=== PATIENT | male | born 1990 | race Caucasian/White ===

== ENCOUNTER 2018-03-02 05:46 | Observation (INO) | payer BC, OTHER ==
[2018-03-02] MEDS ORDERED: NS 0.9% 1000 ML* 1,000 ML IV ONE ×2 (06:12→10:06)
[2018-03-02] MEDS ORDERED: Morphine VIAL* 4 MG/ML VIAL (1 ml vial) IV ONE ×2 (06:14→07:24)
[2018-03-02] MEDS ORDERED: Ondansetron INJ* 2 MG/ML VIAL IV ONE ×2 (06:14→07:37)
--- NOTE | 2018-03-02 06:20 | ED ---
Abdominal Pain/Male - HPI Summary HPI Summary: Patient presents with abdominal pain. Reports this started after bout of diarrhea on Tuesday. He has had normal bowel movements since. Denies nausea, vomiting however he reports he felt a little nauseous in the bathroom here while trying to give urine sample. He reports feeling the pain in his epigastrium around his navel and although he has bilateral lower pain, thinks it 's more prominent in the right lower quadrant and/or perhaps started here. Denies fevers or chills since Tuesday until this morning when he had a sharp bursts of pain causing him to feel sweats with chills. This pain was felt most prominently in the right lower quadrant. He denies headache, chest pain, shortness of breath, skin changes, recent illness, dysuria, flank pain, urinary frequency or hesitation. No previous gastroenterological pathologies or surgeries. His last food intake entailed a couple bites of Georgian yogurt around noon yesterday. Since then he's only been drinking water - last intake at 5am. Reports pain is worse shortly after eating or drinking anything. No history of issues with anesthesia No known cardiac, pulmonary or bleeding disorders - History of Current Complaint Chief Complaint: EDAbdPain Stated Complaint: ABD PAIN Time Seen by Provider: 03/02/18 05:51 Hx Obtained From: Patient Pain Intensity: 7 - Allergies/Home Medications Allergies/Adverse Reactions: Allergies Allergy/AdvReac Type Severity Reaction Status Date / Time No Known Allergies Allergy Verified 03/02/18 05:54 PMH/Surg Hx/FS Hx/Imm Hx Previously Healthy: Yes Endocrine/Hematology History: Denies: Hx Anticoagulant Therapy, Hx Blood Disorders, Hx Diabetes, Autoimmune Disease Cardiovascular History: Denies: Hx Hypertension, Hx Pacemaker/ICD Respiratory History: Denies: Hx Asthma GI History: Denies: Hx Cirrhosis, Hx Crohn's Disease, Hx Diverticulosis, Hx Gall Bladder Disease, Hx Gastroesophageal Reflux Disease, Hx Gastrointestinal Bleed, Hx Hiatal Hernia, Hx Irritable Bowel, Hx Obstructive Bowel, Hx Ulcer Musculoskeletal History: Reports: Other Musculoskeletal History - Lt knee ACL surgery Sensory History: Denies: Hx Hearing Aid Psychiatric History: Denies: Hx Panic Disorder - Surgical History Surgery Procedure, Year, and Place: SUTURES TO RIGHT FOOT FROM CUT. Lt ACL repair Infectious Disease History: No Infectious Disease History: Denies: Traveled Outside the [place] in Last 30 Days - Family History Known Family History: Positive: None - Social History Lives: Alone Alcohol Use: Occasionally Substance Use Type: Reports: Marijuana - occasionally Hx Tobacco Use: No Smoking Status (MU): Never Smoked Tobacco Review of Systems Positive: Fever, Chills - this morning after a burst of intense pain Cardiovascular: Negative Negative: Chest Pain Respiratory: Negative Negative: Shortness Of Breath Positive: Abdominal Pain, Nausea. Negative: Vomiting, Diarrhea Genitourinary: Negative Negative: burning, dysuria, discharge, frequency, flank pain, hematuria, incontinence, pain, urgency Musculoskeletal: Negative Skin: Negative Neurological: Negative Psychological: Normal All Other Systems Reviewed And Are Negative: Yes Physical Exam Triage Information Reviewed: Yes Vital Signs On Initial Exam: Initial Vitals Temp Pulse Resp BP Pulse Ox 98.3 F 63 16 146/74 100 03/02/18 05:50 03/02/18 05:50 03/02/18 05:50 03/02/18 05:50 03/02/18 05:50 Vital Signs Reviewed: Yes Appearance: Positive: Well-Nourished, Ill-Appearing, Pain Distress Skin: Positive: Warm, Skin Color Reflects Adequate Perfusion, Dry Head/Face: Positive: Normal Head/Face Inspection Eyes: Positive: Normal, EOMI, Conjunctiva Clear - anicteric sclera ENT: Positive: Normal ENT inspection, Hearing grossly normal, Pharynx normal - mucosa moist however breath smells ketotic Neck: Positive: Supple, Nontender Respiratory/Lung Sounds: Positive: Clear to Auscultation, Breath Sounds Present. Negative: Rales, Rhonchi, Wheezes Cardiovascular: Positive: Normal, RRR, S1, S2. Negative: Murmur, Rub, Leg Edema Left, Leg Edema Right Abdomen Description: Positive: Guarding, McBurney's Point Tenderness - no rebounding however exam may be skewed by pt gaurding; (-) obturator; (-) psoas Bowel Sounds: Positive: Present Musculoskeletal: Positive: Normal, Strength/ROM Intact Neurological: Positive: Normal, Sensory/Motor Intact, Alert, Oriented to Person Place, Time, CN Intact II-III Psychiatric: Positive: Normal Diagnostics - Vital Signs Vital Signs Temp Pulse Resp BP Pulse Ox 03/02/18 05:50 98.3 F 63 16 146/74 100 - Laboratory Result Diagrams: 03/02/18 06:43 03/02/18 06:43 Lab Statement: Any lab studies that have been ordered have been reviewed, and results considered in the medical decision making process. Re-Evaluation - Re-Evaluation First Eval Change: Improved - minimal improvement - from 7/10 to 6/10 pain - still very uncomfrotable and guarding ab for exam. Nausea resolved. Tolerated PO contrast and denies worsening of ab pain w/ drinking. Second Eval Change: Improved - pain improved w/ additional 4mg morphine 4/10 Abdominal Pain Fem Course/Dx - Course Course Of Treatment: Pt presents w/ ab pain x 5 days. After some conversation, it was decided this is most dominant in the RLQ. Pt is gaurding throughout exam. Labs are noted to show normal WBC but slightly elevated neutrophils, CRP and low mag at 1.7. Urine reveals ketones which were expected with lack of eating > [address] ab/pelvis reveals appendicitis with inflammation. Discussed w/ Dr. Munoz and then Dr. Robe Padilla's lead dental assistant. Zosyn was initiated however per Dr. Nagel'd request will be held until perioperatively. Dr Nagel is aware of pt's labs, CT results, duration of pain and increase in temp from 99F to 100.3F. His PA will be down to see pt. Pt in stable condition and pain improved at times of transition. - Diagnoses Provider Diagnoses: Appendicitis Discharge - Sign-Out/Discharge Documenting (check all that apply): Patient Departure - Discharge Plan Condition: Stable Disposition: ADMITTED TO [facility] - Billing Disposition and Condition Condition: STABLE Disposition: Admitted to [facility]
[2018-03-02 07:01] LABS: ABS Basophils 0 10^3/ul (0-0.2); ABS Eosinophils 0 10^3/ul (0-0.6); ABS Lymphocytes 0.8 10^3/ul (1.0-4.8); ABS Monocytes 0.7 10^3/ul (0-0.8); ABS Neutrophils 7.6 10^3/ul (1.5-7.7); ABS Nucleated RBC 0 10^3/ul; Eosinophil % 0.4 % (0-6); Hematocrit 44 % (42-52); Hemoglobin 15.4 g/dl (14.0-18.0); Lymphocyte % 8.7 % (25-47); Mean Corpuscular HGB Conc 35 g/dl (31-36); Mean Corpuscular Hemoglobin 31 pg (27-31); Mean Corpuscular Volume 87 fL (80-94); Mean Platelet Volume 9.5 um3 (7.4-10.4); Nucleated Red Blood Cells % 0; Platelet Count 129 10^3/ul (150-450); Red Blood Count 4.98 10^6/ul (4.00-5.40); Red Cell Distribution Width 13 % (10.5-15); White Blood Count 9.2 10^3/ul (3.5-10.8)
[2018-03-02 07:07] LABS: INR 1.13 (0.77-1.02)
[2018-03-02] MEDS ORDERED: Ondansetron INJ* 2 MG/ML VIAL ONE ×2 (07:40→12:14)
[2018-03-02] MEDS ORDERED: Iohexol 300* (CONTRAST) 10 ML SDV IV ONE (08:31)
[2018-03-02 08:59] LABS: Urine Appearance Clear; Urine Blood Negative (Negative); Urine Color Amber; Urine Ketones 1+ (Negative); Urine Protein Negative (Negative); Urine Specific Gravity 1.025 (1.010-1.030); Urine Urobilinogen Negative (Negative)
[2018-03-02] MEDS ORDERED: Piperacillin/Tazobac ADVAN(*) 3.375 GM in NS 0.9% 100 ML* 100 ML IVPB ONE (10:06)
--- NOTE | 2018-03-02 10:07 | RAD ---
Indication: Diffuse abdominal pain. Contrast: Administered 95.4 ml of OMNIPAQUE 300 mg/ml CT of the abdomen and pelvis was performed after oral and IV contrast administration. Coronal and sagittal reconstructed images were obtained. Lung bases imaging no pleural fluid, nodules or masses. Heart is of normal size without evidence of pericardial effusion. Liver is normal in size. No focal lesions or intrahepatic duct dilatation is noted. The gallbladder demonstrates no calcified gallstones. No pericholecystic fluid or wall thickening is identified. The spleen is normal in size. The pancreas demonstrates no mass or pancreatic duct dilatation. No adrenal masses are noted. The kidneys demonstrate no hydronephrosis. Small cortical cysts are noted in both kidneys. No retroperitoneal lymphadenopathy is noted. Dilated loops of bowel are noted. CT of the pelvis demonstrates an appendicolith at the base of the appendix. This measures approximately 9 mm. Dilated appendix with hyperemic mucosa is noted. There is thickening of the cecum. Periappendiceal inflammatory changes are noted. Moderate-sized amount of ascites is noted. The colon is filled with stool. Urinary bladder is unremarkable. No hernias are noted. IMPRESSION: Appendicolith with dilated appendix and hyperenhancing mucosa. Moderate amount of ascites is noted. There is thickening of the cecum with inflammatory changes surrounding the appendix.
[2018-03-02] MEDS ORDERED: HYDROmorphone INJ* 2 MG/ML CARPUJECT SYRINGE IV PRN (10:36)
[2018-03-02] MEDS ORDERED: Ondansetron INJ* 2 MG/ML VIAL IV PRN (10:36)
[2018-03-02] MEDS ORDERED: Piperacillin/Tazobactam VIAL*) 3.375 GM in NS 0.9% 100 ML* 100 ML IVPB SCH ×2 (11:00→19:30)
[2018-03-02] MEDS ORDERED: Buffered Lidocaine 0.9% SYRIN* 5 ML/SYR SYRINGE INTRADERM ONE (11:53)
[2018-03-02] MEDS ORDERED: Sodium Citrate/Citric Acid* 15 ML UDC PO ONE (11:53)
[2018-03-02] MEDS ORDERED: Famotidine IV* 10 MG/ML 2 ML (20 mg) IV ONE (11:53)
--- NOTE | 2018-03-02 12:12 | HP ---
HISTORY AND PHYSICAL: DATE OF ADMISSION: 03/02/18 PATIENT OF: Sourav Nagel MD * (DICTATED BY KURT TERAN) CHIEF COMPLAINT: Abdominal pain. HISTORY OF PRESENT ILLNESS: Mr. Ken is a 27-year-old gentleman, who has no significant past medical history, who is in town visiting his mother and working around the area but originally lives in [place], [place]. He presented to [facility] earlier this morning with complaints of worsening abdominal pain for the last 5 days. The patient described his symptoms as vague, mild abdominal pain that started roughly on Tuesday and has gotten progressively worse especially yesterday. The pain was mostly localized to mid abdomen and started to shift towards the right lower quadrant earlier yesterday. He described a sharp episode of pain early this morning prior to presentation to the ED with associated chills, but denies any fever, nausea, vomiting, changes in the bowel habits, changes in the color of stool or urine, or any similar complaints in the past. He otherwise is a very healthy young gentleman, who does not take any medication on a regular basis. He was evaluated in the emergency room and had laboratory workup that showed a normal white count as well as normal chemistry panel with the exception of slightly decreased magnesium and elevated CRP of 60. He had a CT scan of the abdomen and pelvis that showed thickening of the cecum, base of the appendix as well as inflammatory changes consistent with acute appendicitis. Given his current presentation and the findings of the CT scan, we were asked to see the patient for further evaluation and to consider admission for his appendicitis. PAST MEDICAL HISTORY: Essentially unremarkable. He denies any history of heart , liver, lung, or kidney disease. PAST SURGICAL HISTORY: Significant for a left knee arthroscopy with ACL repair and partial meniscectomy by Dr. Brwone a few years ago. CURRENT MEDICATIONS: He takes no medications at home. ALLERGIES: He has no known drug allergies. FAMILY HISTORY: Reviewed and noncontributory. SOCIAL HISTORY: The patient denies smoking cigarettes, but he does smoke marijuana occasionally. He drinks alcohol occasionally and denies excessive caffeine intake. 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 His healthcare proxy is carried by his mom who lives in [place]. REVIEW OF SYSTEMS: See HPI. Otherwise 14-point review of systems was evaluated and essentially negative. PHYSICAL EXAMINATION GENERAL: He is a pleasant healthy-appearing young male, in no acute distress or discomfort at the time of admission. VITAL SIGNS: Revealed a temperature of 100.3, blood pressure of 124/69, pulse of 86, respirations of 18, and O2 sats of 97% on room air. HEENT: Head is normocephalic, atraumatic. Sclerae anicteric. PERRLA. EOMs intact. Oropharynx is pink and moist. NECK: Supple. Trachea midline. No cervical adenopathy, thyromegaly, or JVD. LUNGS: Clear to auscultation bilaterally. HEART: Regular rate and rhythm. Normal S1 and S2 without rubs, murmurs, or gallops. BACK: With normal curvature and no CVA tenderness. ABDOMEN: Soft and nondistended. There is moderate right lower quadrant tenderness on palpation with some guarding and rebound tenderness as well. There is a definite point tenderness at McBurney's point with positive psoas sign. Kaur's sign is negative. There are no hernias, masses, or hepatosplenomegaly. RECTAL: Exam deferred at this time. EXTREMITIES: Without cyanosis, clubbing, or edema. NEUROLOGIC: Grossly intact. DIAGNOSTIC STUDIES/LAB DATA: CBC with white count of 9000, hemoglobin 15.4, hematocrit of 44, platelets of 129. Chemistry with sodium of 134, potassium 3.8 , chloride 101, CO2 of 24, BUN of 9, creatinine of 0.8, his glucose is 115, magnesium 1.7. C-reactive protein 60. LFTs essentially within normal limits and lipase of 11. Accessory diagnostic data: CT scan of the abdomen and pelvis was performed and revealed appendicolith with dilated appendix and moderate amount of ascites as well. There is thickening of the cecum with inflammatory changes around the appendix. IMPRESSION: A 27-year-old gentleman with no significant past medical history, who presented to emergency room with 5 days' history of worsening right lower quadrant abdominal pain that was found on exam and CT scan to have acute appendicitis. PLAN: The patient will be admitted under surgical services in anticipation for laparoscopic appendectomy later today. I discussed with him the rationale, indication, risks, and benefits of surgery. Risks include, but not limited to, infection, bleeding, or injury to adjacent structures. He seems to understand and wishes to agree with the plan. He has been NPO since 5 o'clock this morning and we will keep him NPO, provide IV fluid hydration, as well as antibiotic. He appears to be clinically stable at this time and we will review the case with Dr. Nagel for further recommendation. I anticipate operating room time around this afternoon, hopefully to be discharged home later this evening or tomorrow morning if any issues arise. KURT TERAN [id number]/[facility] #: [id number] MTDD
[2018-03-02] MEDS ORDERED: Propofol* 10 MG/ML 20 ML BTL IV PUSH ONE (12:14)
[2018-03-02] MEDS ORDERED: Lidocaine 2% PF * 5 ML VIAL ONE (12:14)
[2018-03-02] MEDS ORDERED: Ketorolac INJ* 30 MG/ML 1 ML VIAL ONE (12:14)
[2018-03-02] MEDS ORDERED: Rocuronium* 10 MG/ML VIAL ONE (12:15)
[2018-03-02] MEDS ORDERED: fentaNYL* 50 MCG/ML 2 ML VIAL (100 MCG VIAL) ONE ×2 (12:17→13:06)
[2018-03-02] MEDS ORDERED: Midazolam* 1 MG/ML 2 ML VIAL (2 MG) ONE (12:17)
[2018-03-02] MEDS ORDERED: Naloxone* 0.4 MG/ML 1 ML VIAL IV PRN (12:20)
[2018-03-02] MEDS ORDERED: Acetaminophen TAB* 325 MG PO PRN (12:20)
[2018-03-02] MEDS ORDERED: oxyCODONE TAB* 5 MG TAB PO PRN (12:20)
[2018-03-02] MEDS ORDERED: HYDROmorphone INJ* 0.5 MG/0.5 ML SYRINGE IV PRN (12:20)
[2018-03-02] MEDS ORDERED: fentaNYL* 50 MCG/ML 2 ML VIAL (100 MCG VIAL) IV PRN (12:20)
[2018-03-02] MEDS ORDERED: PROCHLORPERAZINE INJ 5 MG/ML 2 ML VIAL IV PRN (12:20)
[2018-03-02] MEDS ORDERED: Bupivacaine 0.25% W/EPI* 10 ML SDV ONE (12:26)
[2018-03-02] MEDS ORDERED: oxyCODONE/Acetamin 5/325 MG* TAB PO PRN (13:25)
--- NOTE | 2018-03-02 13:46 | OP ---
Operative Report - Blank - Operative Report Date of Operation: 03/02/18 Note: Brief Operative Note: Pre-op: Acute appendicitis Post-op: Same Procedure: Laparoscopic appendectomy Surgeon: Dr. Nagel Earth Moving Technician: KURT Bethea Anaesthesia: JAMARA EBL: Minimal Drains: TOMAS-vac to self suction Catheters: None Specimen: Vermiform appendix Findings: See dictated op note
[2018-03-02] MEDS: NS 0.9% 1000 ML* 1,000 ML IV SCH (17:01)
[2018-03-02] MEDS: ZOSYN 3.375 GM Q8H per EXTENDED INFUSION IVPB SCH ×2 (17:06)
--- NOTE | 2018-03-02 21:32 | OP ---
CC: Sourav Nagel MD OPERATIVE REPORT: DATE OF OPERATION: 03/02/18 DATE OF : 89 SURGEON: Sourav Nagel MD SOUR BLEACHING PLEATER: None. ANESTHESIOLOGIST: Dr. Aaron. PRE-OP DIAGNOSIS: Acute appendicitis. POST-OP DIAGNOSIS: Acute appendicitis. OPERATIVE PROCEDURE: Laparoscopic appendectomy. OPERATIVE FINDINGS: Acute suppurative and gangrenous appendicitis with purulent exudate. DESCRIPTION OF PROCEDURE: The patient was supine in the operating room table after adequate general anesthetic, compression stockings, Mohit Hugger warmer, and intravenous antibiotics. The abdomen was prepped with antiseptic and draped in a sterile fashion. Local infiltrate of anesthesia was administ ered. A small umbilical incision was created. Blunt port cannula was placed. Insufflation was gresham ied out with carbon-dioxide, additional cannula 5-mm, left lower quadrant and left mid abdomen, place d with small stab wounds under direct vision. The appendix was down the pelvis and there was purulen t fluid down the pelvis. The appendix had areas of apparent gangrene with purulent exudate and upon dissecting around the base of the appendix, there was little pockets of pus that were exuding. The m esoappendix was divided using nielsen firings of the EndoGIA stapler. The appendix was taken off with a wedge of cecum using the purple load of the EndoGIA stapler. The appendix was placed in a retrieval bag and brought out through the umbilical site. The operative field was irrigated with warm saline s olution. Free fluid was suctioned out. A TOMAS drain was brought out through the lowest incision and p laced down into the pelvis. It was sutured at the skin with 3-0 Prolene. The cannulae were removed. Pneumoperitoneum allowed to escape, umbilical fascia was closed with 0-Vicryl and the skin with 5-0 Vicryl followed by Steri-Strips. He was awakened and extubated and brought to the recovery in good condition. No complications. Drain is Benitez Michaels. Sponge and instrument counts correct. Estimat ed blood loss is 30 mL and specimen is appendix. [id number]/[facility] #: [id number]
[2018-03-02] MEDS: Acetaminophen TAB* 325 MG PO PRN (23:30)
[2018-03-03] MEDS: ZOSYN 3.375 GM Q8H per EXTENDED INFUSION IVPB SCH ×4 (00:48→09:00)
[2018-03-03] MEDS: NS 0.9% 1000 ML* 1,000 ML IV SCH ×2 (00:49→09:00)
[2018-03-03 05:49] LABS: ABS Basophils 0 10^3/ul (0-0.2); ABS Eosinophils 0 10^3/ul (0-0.6); ABS Lymphocytes 0.8 10^3/ul (1.0-4.8); ABS Monocytes 0.6 10^3/ul (0-0.8); ABS Neutrophils 5.9 10^3/ul (1.5-7.7); ABS Nucleated RBC 0 10^3/ul; Eosinophil % 0.5 % (0-6); Hematocrit 40 % (42-52); Hemoglobin 13.9 g/dl (14.0-18.0); Mean Corpuscular HGB Conc 35 g/dl (31-36); Mean Corpuscular Hemoglobin 31 pg (27-31); Mean Corpuscular Volume 87 fL (80-94); Mean Platelet Volume 9.7 um3 (7.4-10.4); Nucleated Red Blood Cells % 0; Platelet Count 120 10^3/ul (150-450); Red Blood Count 4.56 10^6/ul (4.00-5.40); Red Cell Distribution Width 13 % (10.5-15); White Blood Count 7.4 10^3/ul (3.5-10.8)
[2018-03-03 06:07] LABS: EGFR Non-African American 119.4 (>60)
[2018-03-03 08:04] VITALS: BP 139/60
[2018-03-03] MEDS: Acetaminophen TAB* 325 MG PO PRN (09:18)
--- NOTE | 2018-03-03 09:26 | PN ---
Progress Note - Progress Note Date of Service: 03/03/18 Note: POD#1 s/p lap appy Afeb, VS noted Feels well, mild pain No N/V, yessy po's, not great appetite Voiding well TOMAS moderate Alert and coherent, color good Abd benign, incis clean Impr: s/p lap appy for gangrenous appx TOMAS D/C'd Increase po's at home as yessy Discharge home on oral abx
--- NOTE | 2018-03-03 13:57 | DS ---
AMENDED REPORT NOW INCLUDES COSIGNER DESIGNATION - ESIGNED BEFORE ADJUSTMENT DISCHARGE SUMMARY: DATE OF ADMISSION: 03/02/18 DATE OF DISCHARGE: 03/03/18 PATIENT OF: Sourav Nagel MD.* (DICTATED BY KURT TERAN) ADMISSION DIAGNOSES: 1. Abdominal pain. 2. Acute appendicitis. DISCHARGE DIAGNOSES: 1. Abdominal pain. 2. Acute appendicitis. ADMITTING PHYSICIAN: Dr. Sourav Nagel. CONSULTATIONS: None. PROCEDURES: Laparoscopic appendectomy on 03/02/18. BRIEF MEDICAL HISTORY: Mr. Ken is a pleasant 27-year-old gentleman, who has no significant past medical history, who presented to the emergency room earlier yesterday with complaints of worsening abdominal pain for the past 5 days. His pain was described as being vague initially, then more central that has shifted to the right lower quadrant in the past couple of days prior to his presentation. He reports occasional sharp episodes with associated chills, but denied any fever, changes in the bowel habits, nausea, or vomiting. He was evaluated in the emergency room and was found to have elevated CRP as well as CT scan consistent with acute appendicitis with thickened cecum. Given his ongoing symptoms and the findings of the CT scan, we were asked to see the patient for further evaluation and to consider appendectomy. HOSPITAL COURSE: The patient was directly admitted from the ED to the surgical services and was taken to the operating suit later that morning where he had a laparoscopic appendectomy. His postoperative period was essentially unremarkable and he was transferred to the surgical floor for observation overnight. He did relatively well with only mild incisional discomfort that was well tolerated using pain medicine as needed. He was ambulatory out of bed that night and he started on clear liquid diet that he tolerated well and his diet was eventually advanced to regular diet later next day. He was ambulatory and he remained afebrile during his hospitalization. He was examined and evaluated by Dr. Nagel this morning and found to be stable for discharge home. He had an J-VAC drain overnight that produced minimal output and his drain was discontinued prior to discharge. He will be discharged to home on oral antibiotics and pain medication and will be seen in the office next week for a followup. DISCHARGE MEDICATIONS: Include: 1. Augmentin 875 mg 1 tablet b.i.d. x7 days. 2. Percocet 5/325 one tablet q.4 hours as needed for pain. PROBLEM LIST: Acute appendicitis, status post laparoscopic appendectomy on 08/08. KURT TERAN [id number]/[facility] #: [id number] MTDD
== END 2018-03-03 11:45 | disposition home or self-care (01) ==
LOC: ED 05:46 → SSU 11:01
PROVIDERS: ADMIT Surgery; ATTEND Surgery
PROC: 0DTJ4ZZ Resection of Appendix, Percutaneous Endoscopic Approach (ICD-10-PCS; principal; 2018-03-02 16:45)
DX: K35.80 Unspecified acute appendicitis (principal); R50.9 Fever, unspecified; R10.9 Unspecified abdominal pain
CPT/HCPCS: 36415; 74177; 80048; 80053; 81003; 83605; 83690; 83735; 85025; 85610; 85730; 86140; 88304; 96374; 96375; 99284; A9270-GY; C1776; G0378; J1885; J2250; J2270; J2405; J2543; J2704; J3010; Q9967